=== PATIENT | female | born 1965 | race Caucasian/White ===

== ENCOUNTER → 2018-03-24 09:51 | Outpatient (CLI) | payer OTHER, SELFPAY ==
--- NOTE | 2018-03-24 09:55 | DI.MG.S_ITS ---
BILATERAL DIGITAL SCREENING MAMMOGRAM 3D/2D WITH CAD: 03/24/2018 Comparison is made to exams dated: 07/25/2014 mammogram, 07/04/2014 mammogram, and 09/16/2008 mammogram - [facility]. There are scattered fibroglandular elements in both breasts. Current study was also evaluated with a Computer Aided Detection (CAD) system. No significant masses, calcifications, or other findings are seen in either breast. There has been no significant interval change. IMPRESSION: NEGATIVE There is no mammographic evidence of malignancy. A 1 year screening mammogram is recommended. This exam was interpreted at Station ID: [id number]. NOTE: For mammograms, a report in lay terms will be sent to the patient. Approximately 15% of breast malignancies will not be visualized mammographically. In the management of a palpable breast mass, a negative mammogram must not discourage biopsy of a clinically suspicious lesion. Electronically Signed By: Susanne bills/yovanny:03/26/2018 11:28:25 letter sent: Normal Exam ACR BI-RADS Category 1: Negative 3341F
== END ==
PROVIDERS: PCP Family Medicine; Visit Provider Family Medicine
DX: Z12.31 Encounter for screening mammogram for malignant neoplasm of breast (principal)
CPT/HCPCS: 77063; 77067

== ENCOUNTER → 2018-03-27 07:20 | Outpatient (CLI) | payer OTHER, SELFPAY ==
[2018-03-27 08:07] LABS: Appearance Urine UA SL CLOUDY; Bilirubin Urine UA NEGATIVE (NEGATIVE); Color Urine UA YELLOW; Glucose Urine UA NEGATIVE (Normal); Ketones Urine UA NEGATIVE (NEGATIVE); Leukocyte Esterase Urine UA NEGATIVE (NEGATIVE); Nitrite Urine UA NEGATIVE (Negative); Occult Blood Urine UA 2+ (Negative); Protein Urine UA NEGATIVE (Negative); Specific Gravity Urine UA 1.025 (1.000-1.035); Urobilinogen Urine UA 0.2 E.U./dL (0.2)
[2018-03-27 08:14] LABS: Add Manual Diff / Slide Review NO; Basophils Percent Auto 1.1 % (0-2); Hematocrit 42.5 % (36-46); Hemoglobin 14.1 g/dL (12.0-16.0); Lymphocytes Percent Auto 29.5 % (25-40); Mean Corpuscular Hemoglobin 26.5 PG (26-34); Mean Corpuscular Volume 80.2 fL (80-100); Monocytes Percent Auto 6.4 % (3-14); Neutrophils Absolute Auto 4300 /uL (3000-5900); Platelet Count 368 X10^3/uL (150-400); Red Blood Cell Count 5.31 X10^6/uL (4.0-5.2); Red Cell Distribution Width 14.5 % (11.6-14.8); White Blood Cell Count 7.1 X10^3/uL (4.5-11.0)
[2018-03-27 08:23] LABS: Bacteria Urine None Seen; WBC Urine None Seen (0-5/HPF)
[2018-03-27 08:31] LABS: Alanine Aminotransferase 29 IU/L (9-52); Albumin 4.5 g/dL (3.5-5.0); Albumin Globulin Ratio 1.4 (1.0-2.8); Alkaline Phosphatase 87 U/L (38-126); Aspartate Aminotransferase 29 IU/L (14-36); Bilirubin Total 0.5 mg/dL (0.2-1.3); Blood Urea Nitrogen 20 mg/dL (7-17); Calcium 9.6 mg/dL (8.4-10.2); Carbon Dioxide 29 mmol/L (22-32); Chloride 102 mmol/L (98-107); Cholesterol 234 mg/dL (140-199); Estimated Glomerular Filt Rate > 60.0 mL/min (>60); Globulin 3.3 g/dL (1.7-4.1); Glucose 107 mg/dL (70-100); HDL Cholesterol 49 mg/dL (40-60); HEMOLYSIS < 15 (0-50); LDL Cholesterol Calculated 153 mg/dL (<100); Potassium 3.9 mmol/L (3.4-5.1); Sodium 145 mmol/L (137-145); Total Protein 7.8 g/dL (6.3-8.2); Triglycerides 161 mg/dL (35-150)
[2018-03-27 08:33] LABS: RBC Urine 5-10/HPF (0-5/HPF); Squamous Epithelial Cell Urine 1-5 /HPF
[2018-03-27 08:34] LABS: Culture Indicated Urine Cult Not Indicated
[2018-03-27 09:00] LABS: Thyroid Stimulating Hormone 2.96 uIU/mL (0.47-4.68)
== END ==
PROVIDERS: PCP Family Medicine; Visit Provider Family Medicine
DX: Z00.00 Encounter for general adult medical examination without abnormal findings (principal); Z13.220 Encounter for screening for lipoid disorders; Z13.29 Encounter for screening for other suspected endocrine disorder
CPT/HCPCS: 36415; 80053; 80061; 81003; 81015; 84443; 85025

== ENCOUNTER 2018-04-30 09:31 | Day surgery (SDC) | payer OTHER, SELFPAY ==
--- NOTE | 2018-04-30 | PATH_ITS ---
[facility] Accession Number: [id number] . 01 Material submitted: . COLON POLYP AT 30CM . 02 Diagnosis: Colon Polyp at 30 cm: Tubular adenoma. MRV/05/02/2018 . 02 Electronically signed: . Dedrick Davila MD, PhD, Pathologist NPI- [id number] . 01 Gross description: . COLON POLYP AT 30CM: Received in formalin are 2 fragment(s) of maher, soft tissue measuring 0.6 x 0.3 x 0.2 cm to 0.5 x 0.5 x 0.2 cm submitted entirely in 1 cassette(s) /CKI /CKI . 02 Pathologist provided ICD-10: D12.6 . 02 CPT . 989146 Performed at: 01 [facility] [place] [address] [facility] [place], [place], [place] [id number] MD Melquiades Nur MD Phone: [phone] Performed at: 02 [facility] [address] [place], [place] [id number] MD Yesenia Howe MD Phone: [phone]
[2018-04-30 11:20] VITALS: BMI 38.2
[2018-04-30 11:31] VITALS: BP 111/73; PULSE 87; RESP 16; TEMP 36.3; O2SAT 99
[2018-04-30] MEDS: SODIUM CHLORIDE 0.9% 1,000 ML 21 ML IV (11:36)
[2018-04-30] MEDS: fentaNYL 250 MCG/5 ML INJ IV (12:59)
[2018-04-30] MEDS: MIDAZOLAM 5 MG/5 ML VIAL IV (12:59)
[2018-04-30 13:08] VITALS: BP 125/75; PULSE 77; RESP 16; O2SAT 95
[2018-04-30 13:14] VITALS: BP 134/85; PULSE 90; RESP 13; O2SAT 96
[2018-04-30 13:20] VITALS: BP 125/80; PULSE 80; RESP 14; O2SAT 97
[2018-04-30 13:23] VITALS: BP 134/92; PULSE 74; RESP 14; O2SAT 98
[2018-04-30 13:55] VITALS: BP 120/80; PULSE 76; RESP 15; TEMP 36.4; O2SAT 98
--- NOTE | 2018-04-30 14:30 | HP_ITS ---
youDATE OF SERVICE: 04/30/2018 Patient coming in for screening colonoscopy. She's had no prior colonoscopy. She denies melena, hematochezia, or abdominal pain. PAST SURGICAL HISTORY: Hysterectomy and cholecystectomy. ALLERGIES: NO KNOWN MEDICAL ALLERGIES. MEDICATIONS: Has hypercholesterolemia, takes simvastatin, only 20 mg a day and takes Prilosec 20 mg a day as well. REVIEW OF SYSTEMS: Negative for exertional chest pain or unusual shortness of breath. GI: As in HPI. : She's had a hysterectomy. Neurologic: capital structure seizures. PHYSICAL EXAMINATION VITAL SIGNS: Blood pressure 111/73, heart rate 87, respirations normal at 16. HEENT: Ears, nose, and throat are normal. NECK: No adenopathy. CHEST: Lungs are clear. HEART: Regular rhythm. No murmur. ABDOMEN: Soft, no organomegaly. No masses. : Rectal exam will be done at the time of colonoscopy. DIAGNOSIS: Patient is here for her first screening colonoscopy. HariNelia jeffrey - Marybeth/ doc#: [id number]/job#: [id number] dd: 04/30/2018 12:33:00 dt: 04/30/2018 13:59:00 DICTATING MD/COPIES TO: Nelson Jewell MD COPIES MNE: BANDAR
--- NOTE | 2018-04-30 16:50 | OP_ITS ---
DATE OF SERVICE: 04/30/2018 PREOP DIAGNOSIS: Screening colonoscopy. POSTOP DIAGNOSIS: A 5-mm polyp, sigmoid colon, at 30 cm from the anal verge. PROCEDURE: Total colonoscopy to the cecum and polypectomy, sigmoid colon. SURGEON: Nelson Jewell MD DESCRIPTION OF PROCEDURE: Patient was properly identified during surgical pause, given conscious sedation with a total of 200 of fentanyl and 4 of percent throughout the procedure. Flexible fiber-optic colonoscope inserted transanally to the cecum. On retrieving the scope, I noted a polyp at 30 cm in the sigmoid colon which was removed using the cold forceps. This was sent for histopathology. There was minimal bleeding. The procedure was very well tolerated. Nelia Lora - Marybeth/ doc#: [id number]/job#: [id number] dd: 04/30/2018 13:10:00 dt: 04/30/2018 16:35:00 DICTATING MD/COPIES TO: Nelson Jewell MD COPIES MNE: BANDAR
== END 2018-04-30 14:07 ==
LOC: ENDO 09:31
PROVIDERS: PCP Family Medicine; Visit Provider Surgery
PROC: 0DJD8ZZ Inspection of Lower Intestinal Tract, Via Natural or Artificial Opening Endoscopic (ICD-10-PCS; CPT 45378; principal; 2018-04-30 12:45)
DX: Z12.11 Encounter for screening for malignant neoplasm of colon (principal); D12.6 Benign neoplasm of colon, unspecified
CPT/HCPCS: 45380; J2250; J3010

== ENCOUNTER → 2018-05-28 11:26 | Outpatient (CLI) | payer OTHER, SELFPAY | PROVIDERS: PCP Family Medicine; Visit Provider Physician Assistant | DX: R30.0 Dysuria (principal) | CPT/HCPCS: 87086 ==

== ENCOUNTER → 2018-06-08 07:07 | Outpatient (CLI) | payer OTHER, SELFPAY ==
[2018-06-08 08:08] LABS: Appearance Urine UA SL CLOUDY; Bilirubin Urine UA NEGATIVE (NEGATIVE); Color Urine UA YELLOW; Glucose Urine UA NEGATIVE (Negative); Ketones Urine UA NEGATIVE (NEGATIVE); Leukocyte Esterase Urine UA TRACE (NEGATIVE); Nitrite Urine UA NEGATIVE (Negative); Occult Blood Urine UA 2+ (Negative); Protein Urine UA NEGATIVE (Negative); Specific Gravity Urine UA >=1.030 (1.000-1.035); Urobilinogen Urine UA 0.2 E.U./dL (0.2)
[2018-06-08 08:21] LABS: Alanine Aminotransferase 24 IU/L (9-52); Albumin 4.2 g/dL (3.5-5.0); Albumin Globulin Ratio 1.4 (1.0-2.8); Alkaline Phosphatase 84 U/L (38-126); Aspartate Aminotransferase 26 IU/L (14-36); BUN Creatinine Ratio 22.2 (6-22); Bilirubin Total 0.5 mg/dL (0.2-1.3); Blood Urea Nitrogen 20 mg/dL (7-17); Calcium 9.4 mg/dL (8.4-10.2); Carbon Dioxide 29 mmol/L (22-32); Chloride 103 mmol/L (98-107); Cholesterol 142 mg/dL (140-199); Estimated Glomerular Filt Rate > 60.0 mL/min (>60); Globulin 3.1 g/dL (1.7-4.1); Glucose 106 mg/dL (70-100); HDL Cholesterol 55 mg/dL (40-60); HEMOLYSIS < 15 (0-50); LDL Cholesterol Calculated 64 mg/dL (<100); Potassium 3.8 mmol/L (3.4-5.1); Sodium 142 mmol/L (137-145); Total Protein 7.3 g/dL (6.3-8.2); Triglycerides 114 mg/dL (35-150)
[2018-06-08 08:22] LABS: Bacteria Urine Few (2-10); RBC Urine 1-5/HPF (0-5/HPF); Squamous Epithelial Cell Urine 10-30 /HPF; WBC Urine 10-30/HPF (0-5/HPF)
== END ==
PROVIDERS: PCP Family Medicine; Visit Provider Family Medicine
DX: E78.5 Hyperlipidemia, unspecified (principal); R31.29 Other microscopic hematuria
CPT/HCPCS: 36415; 80053; 80061; 81003; 81015

== ENCOUNTER → 2018-06-22 15:32 | Outpatient (CLI) | payer OTHER, SELFPAY | PROVIDERS: PCP Family Medicine; Visit Provider Physician Assistant | DX: R30.0 Dysuria (principal); R39.9 Unspecified symptoms and signs involving the genitourinary system | CPT/HCPCS: 87086; 87210 ==

== ENCOUNTER → 2019-01-07 08:01 | Outpatient (CLI) | payer OTHER, SELFPAY ==
[2019-01-07 10:08] LABS: Alanine Aminotransferase 17 IU/L (9-52); Albumin 4.2 g/dL (3.5-5.0); Albumin Globulin Ratio 1.3 (1.0-2.8); Alkaline Phosphatase 91 U/L (38-126); Aspartate Aminotransferase 24 IU/L (14-36); BUN Creatinine Ratio 17.5 (6-22); Bilirubin Total 0.5 mg/dL (0.2-1.3); Blood Urea Nitrogen 14 mg/dL (7-17); Calcium 9.5 mg/dL (8.4-10.2); Carbon Dioxide 29 mmol/L (22-32); Chloride 102 mmol/L (98-107); Cholesterol 214 mg/dL (140-199); Estimated Glomerular Filt Rate > 60.0 mL/min (>60); Globulin 3.3 g/dL (1.7-4.1); Glucose 98 mg/dL (70-100); HDL Cholesterol 55 mg/dL (40-60); HEMOLYSIS < 15 (0-50); LDL Cholesterol Calculated 128 mg/dL (<100); Potassium 4.1 mmol/L (3.4-5.1); Sodium 141 mmol/L (137-145); Total Protein 7.5 g/dL (6.3-8.2); Triglycerides 156 mg/dL (35-150)
[2019-01-07 12:35] LABS: Vitamin D 25 Hydroxy (D3) 26.1 ng/mL (30.0-100.0)
== END ==
PROVIDERS: PCP Family Medicine; Visit Provider Family Medicine
DX: E55.9 Vitamin D deficiency, unspecified (principal); E78.5 Hyperlipidemia, unspecified
CPT/HCPCS: 36415; 80053; 80061; 82306

== ENCOUNTER → 2019-02-05 14:00 | Outpatient (CLI) | payer OTHER, SELFPAY ==
[2019-02-05 14:41] LABS: Hematocrit 37.3 % (36-46); Hemoglobin 12.1 g/dL (12.0-16.0); Mean Corpuscular HGB Conc 32.4 % (30-36); Mean Corpuscular Hemoglobin 24.9 PG (26-34); Platelet Count 414 X10^3/uL (150-400); Red Blood Cell Count 4.85 X10^6/uL (4.0-5.2); Red Cell Distribution Width 15.1 % (11.6-14.8); White Blood Cell Count 8.8 X10^3/uL (4.5-11.0)
[2019-02-05 15:18] LABS: Microcytosis 1+; Neutrophils Absolute Manual 5896 /uL (3000-5900); Total Cells Counted 100
[2019-02-05 15:19] LABS: Platelet Morphology Comment NOTE
[2019-02-05 16:03] LABS: HEMOLYSIS < 15 (0-50); Iron 25 ug/dL (37-170)
[2019-02-05 16:13] LABS: Percent Iron Saturation 7 % (15-50); Total Iron Binding Capacity 380 ug/dL (265-497); Transferrin 322 mg/dL (206-381)
== END ==
PROVIDERS: PCP Family Medicine; Visit Provider Family Medicine
DX: R53.83 Other fatigue (principal)
CPT/HCPCS: 36415; 83540; 83550; 85025

== ENCOUNTER → 2019-03-11 08:08 | Outpatient (CLI) | payer OTHER, SELFPAY ==
[2019-03-11 09:18] LABS: Add Manual Diff / Slide Review NO; Basophils Absolute Auto 100 /uL (0-100); Basophils Percent Auto 1.3 % (0-2); Eosinophils Absolute Auto 100 /uL (0-450); Eosinophils Percent Auto 1.8 % (2-4); Hematocrit 40.9 % (36-46); Hemoglobin 13.6 g/dL (12.0-16.0); Lymphocytes Absolute Auto 1500 /uL (1100-4500); Lymphocytes Percent Auto 24.5 % (25-40); Mean Corpuscular HGB Conc 33.3 % (30-36); Mean Corpuscular Hemoglobin 26.1 PG (26-34); Mean Corpuscular Volume 78.4 fL (80-100); Monocytes Absolute Auto 400 /uL (0-900); Monocytes Percent Auto 7.2 % (3-14); Neutrophils Absolute Auto 4000 /uL (1500-7000); Neutrophils Percent Auto 65.2 % (50-75); Platelet Count 339 X10^3/uL (150-400); Red Blood Cell Count 5.22 X10^6/uL (4.0-5.2); Red Cell Distribution Width 16.7 % (11.6-14.8); White Blood Cell Count 6.1 X10^3/uL (4.5-11.0)
[2019-03-11 09:48] LABS: Alanine Aminotransferase 16 IU/L (9-52); Albumin 4.2 g/dL (3.5-5.0); Albumin Globulin Ratio 1.3 (1.0-2.8); Alkaline Phosphatase 104 U/L (38-126); Aspartate Aminotransferase 27 IU/L (14-36); BUN Creatinine Ratio 21.3 (6-22); Bilirubin Total 0.4 mg/dL (0.2-1.3); Blood Urea Nitrogen 17 mg/dL (7-17); Calcium 9.4 mg/dL (8.4-10.2); Carbon Dioxide 29 mmol/L (22-32); Chloride 102 mmol/L (98-107); Cholesterol 137 mg/dL (140-199); Estimated Glomerular Filt Rate > 60.0 mL/min (>60); Globulin 3.3 g/dL (1.7-4.1); Glucose 97 mg/dL (70-100); HDL Cholesterol 52 mg/dL (40-60); HEMOLYSIS < 15 (0-50); LDL Cholesterol Calculated 65 mg/dL (<100); Potassium 3.8 mmol/L (3.4-5.1); Sodium 140 mmol/L (137-145); Total Protein 7.5 g/dL (6.3-8.2); Triglycerides 100 mg/dL (35-150)
[2019-03-11 09:53] LABS: Appearance Urine UA CLOUDY; Bilirubin Urine UA NEGATIVE (NEGATIVE); Color Urine UA YELLOW; Glucose Urine UA NEGATIVE (Negative); Ketones Urine UA NEGATIVE (NEGATIVE); Leukocyte Esterase Urine UA 2+ (NEGATIVE); Nitrite Urine UA NEGATIVE (Negative); Occult Blood Urine UA 1+ (Negative); Protein Urine UA 1+ (Negative); Specific Gravity Urine UA 1.015 (1.000-1.035); Urobilinogen Urine UA 0.2 E.U./dL (0.2)
[2019-03-11 11:03] LABS: Thyroid Stimulating Hormone 2.45 uIU/mL (0.47-4.68)
[2019-03-11 11:16] LABS: pH Urine UA 6.5 (4.5-8.0)
[2019-03-11 11:17] LABS: Bacteria Urine Many (>30); Culture Indicated Urine Cult Not Indicated; RBC Urine 1-5/HPF (0-5/HPF); Squamous Epithelial Cell Urine >30 /HPF (0-5/HPF); WBC Urine 5-10/HPF (0-5/HPF)
== END ==
PROVIDERS: PCP Family Medicine; Visit Provider Family Medicine
DX: E78.5 Hyperlipidemia, unspecified (principal); K21.9 Gastro-esophageal reflux disease without esophagitis; Z51.81 Encounter for therapeutic drug level monitoring
CPT/HCPCS: 36415; 80053; 80061; 81003; 81015; 84443; 85025

== ENCOUNTER → 2019-04-04 16:36 | Outpatient (CLI) | payer OTHER, SELFPAY ==
--- NOTE | 2019-04-04 | DI.MG.S_ITS ---
BILATERAL DIGITAL SCREENING MAMMOGRAM 3D/2D WITH CAD: 04/04/2019 CLINICAL: Routine screening. Comparison is made to exams dated: 03/24/2018 mammogram - [facility], 07/25/2014 mammogram, and 07/04/2014 mammogram - [facility]. There are scattered fibroglandular elements in both breasts. Current study was also evaluated with a Computer Aided Detection (CAD) system. No significant masses, calcifications, or other findings are seen in either breast. There has been no significant interval change. IMPRESSION: NEGATIVE There is no mammographic evidence of malignancy. A 1 year screening mammogram is recommended. This exam was interpreted at Station ID: [id number]. NOTE: For mammograms, a report in lay terms will be sent to the patient. Approximately 15% of breast malignancies will not be visualized mammographically. In the management of a palpable breast mass, a negative mammogram must not discourage biopsy of a clinically suspicious lesion. Electronically Signed By: Melquiades landrum/yovanny:04/05/2019 07:59:01 letter sent: Normal Exam ACR BI-RADS Category 1: Negative 3341F
== END ==
PROVIDERS: PCP Family Medicine; Visit Provider Family Medicine
DX: Z12.31 Encounter for screening mammogram for malignant neoplasm of breast (principal)
CPT/HCPCS: 77063; 77067

== ENCOUNTER → 2019-05-02 09:05 | Outpatient (CLI) | payer OTHER, SELFPAY ==
--- NOTE | 2019-03-22 12:35 | DI.RAD.S_ITS ---
PROCEDURE: XR CHEST 2V INDICATIONS: SOB TECHNIQUE: 2 views of the chest were acquired. COMPARISON: None. FINDINGS: Surgical changes and devices: None. Lungs and pleura: Lungs are clear. No pleural effusions or pneumothorax. Mediastinum: Mediastinal contours are normal. Heart size is normal. Bones and chest wall: No suspicious bony abnormalities. Soft tissues appear unremarkable. IMPRESSION: No acute disease Dictated by: Ry Mays M.D. on 03/22/2019 at 14:39 Approved by: Ry Mays M.D. on 03/22/2019 at 14:40
--- NOTE | 2019-05-10 16:17 | PM.PFT.1 ---
Pulmonary Function Test Referral & Results Date Patient Seen: 05/02/19 Requesting provider: Juany Xavier Indication: Shortness of breath Results: The spirometry demonstrates an FVC of 2.72 L which is 65% of predicted. The FEV1 was measured at 2.31 L which is 72% of predicted. The FEV1/FVC ratio was 85 which is 110% of predicted. Following the administration of bronchodilator there was no appreciable change. Lung volumes show an SVC of 2.82 L which is 68% of predicted. The diffusing capacity was measured at 20.32 which is 79% of predicted. No hemoglobin value was provided, so no correction for potential anemia could be made, if appropriate. The maximum voluntary ventilation was slightly reduced Interpretation: This study demonstrates mild to moderate obstructive lung disease with no evidence of benefit following bronchodilator There is also evidence of qzkm-[id number] restrictive lung disease There is also a very minimal reduction in diffusing capacity
== END ==
PROVIDERS: PCP Family Medicine; Visit Provider Family Medicine
DX: R06.02 Shortness of breath (principal); R06.09 Other forms of dyspnea
CPT/HCPCS: 71046; 93005; 94060; 94726; 94729

== ENCOUNTER → 2019-06-14 13:42 | Outpatient (CLI) | payer OTHER, SELFPAY ==
--- NOTE | 2019-06-14 14:44 | PM.TREADMILL ---
Cardiac Stress Test Report Referral & Results Date Patient Seen: 06/14/19 Requesting provider: Juany Xavier Rest ECG: Unremarkable Procedure Note: Today following both written and verbal informed consent the patient was exercised according to a standard Henri protocol patient went for a total of 4 minutes 29 seconds achieving a maximum heart rate of 146 maximum systolic blood pressure of 165. This is approximately 7.0 METS. Exercise was terminated at this point because of patient unable to continue. Patient was also given Cardiolite through a previously started Hep-Lock IV by the diagnostic imaging staff approximately 1 minute prior to the cessation of exercise. There are no ST-T segment changes Normal heart rate and blood pressure response to exercise Functional aerobic impairment rates 25% on the sedentary scale Impression: No evidence of ischemia per usual ECG criteria Please see perfusion imaging report as well Limited exercise capacity as above Please note: Actual ECG tracings can be found in the PACS system.
--- NOTE | 2019-06-18 19:25 | DI.NM.S_ITS ---
DATE OF SERVICE: 06/14/2019 PROCEDURE PERFORMED: Exercise treadmill stress and rest myocardial perfusion imaging with gating to assess ejection fraction and regional wall motion. ORDERING PROVIDER: Dr. Juany Xavier. INDICATIONS: The patient is a severely obese 54-year-old female with exertional dyspnea and presumed lung disease. EXERCISE TREADMILL TESTING: The patient was able to exercise for 4 minutes 29 seconds on a standard Henri protocol, suggesting severely reduced exercise capacity with an TRACEY of +38%. She had a normal heart rate and blood pressure response to exercise, achieving a maximum heart rate of 146 bpm (88% of her predicted maximum). She had no chest discomfort. Her resting ECG shows relatively low- voltage QRS, but normal ST segments and there were no ischemic changes or arrhythmias with exercise. At 3 minutes 19 seconds of exercise, a heart rate of 137 bpm, 27.9 mCi of technetium-99m Myoview was injected and the patient was imaged 15 minutes later using a gated SPECT acquisition protocol. The patient returned 4 days later and was reinjected with an additional 20.2 mCi of technetium-99m Myoview and was imaged 30 minutes later, again, using a gated SPECT acquisition algorithm. FINDINGS: RAW DATA:: There is marginal image quality, predominantly due to severe breast attenuation artifact. Lung-heart ratio is normal at 0.39 with a normal TID ratio of 0.85. QUANTITATED GATED SPECT:: Post-stress ejection fraction is estimated at 71% without any regional wall motion abnormality. Specifically, the inferior wall appears to have normal contractility. The resting ejection fraction is 64% with a resting end-diastolic volume of 95 mL. MYOCARDIAL PERFUSION IMAGING:: Post-stress supine images are of marginal quality but suggest a fairly normal perfusion pattern although with mildly reduced tracer activity in the inferior wall in a pattern that would be consistent with diaphragmatic attenuation, supported by its complete resolution on the prone images which reveal a completely normal perfusion pattern. The resting images show an identical perfusion pattern to that of the post-stress supine images without any areas of improvement. IMPRESSION: 1. Normal myocardial perfusion study. 2. Mild fixed inferior defect that resolves on prone imaging, consistent with diaphragmatic attenuation artifact. 3. There is no compelling evidence for myocardial ischemia or previous myocardial infarction. 4. Normal left ventricular systolic function without any regional wall motion abnormality. 5. Severely reduced exercise capacity without any angina or ECG evidence of ischemia. Nelia Hinojosa - RS/fn/lc doc#: [id number]/job#: [id number] dd: 06/18/2019 16:53:00 dt: 06/18/2019 18:16:00 DICTATING MD/COPIES TO: Michoacano Escobedo MD; Juany Xavier, DO COPIES MNE: TIFFANIE;
== END ==
PROVIDERS: PCP Family Medicine; Visit Provider Internal Medicine
DX: R06.02 Shortness of breath (principal); R06.09 Other forms of dyspnea; E66.01 Morbid (severe) obesity due to excess calories
CPT/HCPCS: 78452; 93016; 93017; 93018; A9502

== ENCOUNTER → 2019-11-06 08:34 | Outpatient (CLI) | payer OTHER, SELFPAY ==
[2019-11-06 09:39] LABS: Hematocrit 37.9 % (36-46); Hemoglobin 12.7 g/dL (12.0-16.0); Mean Corpuscular HGB Conc 33.5 % (30-36); Mean Corpuscular Hemoglobin 27.9 PG (26-34); Mean Corpuscular Volume 83.4 fL (80-100); Platelet Count 320 X10^3/uL (150-400); Red Blood Cell Count 4.54 X10^6/uL (4.0-5.2); Red Cell Distribution Width 14.1 % (11.6-14.8); White Blood Cell Count 6.5 X10^3/uL (4.5-11.0)
[2019-11-06 09:43] LABS: Hemoglobin A1C% w Est Avg Glu 5.5 % (4.0-6.0)
[2019-11-06 09:52] LABS: Alanine Aminotransferase 21 IU/L (<35); Albumin Globulin Ratio 1.2 (1.0-2.8); Alkaline Phosphatase 104 U/L (38-126); Aspartate Aminotransferase 27 IU/L (14-36); BUN Creatinine Ratio 22.8 (6-22); Bilirubin Total 0.5 mg/dL (0.2-1.3); Blood Urea Nitrogen 18 mg/dL (7-17); Calcium 9.3 mg/dL (8.4-10.2); Carbon Dioxide 28 mmol/L (22-32); Chloride 103 mmol/L (98-107); Cholesterol 157 mg/dL (140-199); Estimated Glomerular Filt Rate > 60.0 mL/min (>60); Globulin 3.3 g/dL (1.7-4.1); Glucose 103 mg/dL (70-100); HDL Cholesterol 52 mg/dL (40-60); HEMOLYSIS < 15 (0-50); LDL Cholesterol Calculated 74 mg/dL (<100); Sodium 139 mmol/L (137-145); Total Protein 7.3 g/dL (6.3-8.2); Triglycerides 153 mg/dL (35-150)
[2019-11-06 10:05] LABS: Iron 63 ug/dL (37-170)
[2019-11-06 10:15] LABS: Total Iron Binding Capacity 334 ug/dL (265-497)
[2019-11-06 10:22] LABS: Vitamin D 25 Hydroxy (D3) 37.3 ng/mL (30.0-100.0)
[2019-11-06 10:24] LABS: Ferritin 27 ng/mL (11-264)
[2019-11-06 10:36] LABS: Thyroid Stimulating Hormone 2.35 uIU/mL (0.47-4.68)
[2019-11-06 10:54] LABS: Folate 14.2 ng/mL (2.76-20.0); Vitamin B12 443 pg/mL (239-931)
[2019-11-07 19:36] LABS: Zinc 81 ug/dL (56-134)
[2019-11-10 15:13] LABS: Vitamin A 65.6 ug/dL (20.1-62.0)
[2019-11-10 16:07] LABS: Vitamin B1 151.6 nmol/L (66.5-200.0)
== END ==
PROVIDERS: PCP Internal Medicine Cardiovascular Disease; Referring Provider Surgery; Visit Provider Surgery
DX: Z71.3 Dietary counseling and surveillance (principal)
CPT/HCPCS: 36415; 80053; 80061; 82306; 82607; 82728; 82746; 83036; 83540; 83550; 84425; 84443; 84590; 84630; 85027

== ENCOUNTER → 2025-03-15 15:28 | Outpatient (CLI) | payer OTHER, SELFPAY | LOC: LAB 15:29 | PROVIDERS: Visit Provider Chiropractor | DX: R30.0 Dysuria (principal) | CPT/HCPCS: 87077; 87086 ==

== ENCOUNTER → 2025-03-21 11:22 | Outpatient (CLI) | payer OTHER, SELFPAY | PROVIDERS: Visit Provider Nurse Practitioner Family | DX: R39.15 Urgency of urination (principal) | CPT/HCPCS: 87086 ==